=== PATIENT | male | born 1985 | race Caucasian/White ===

== ENCOUNTER 2017-09-14 20:10 | Emergency (ER) | payer OTHER ==
[~2017-09-14] VITALS: Ht 188 cm; Wt 106.0 kg
[2017-09-14 20:34] VITALS: TEMP 36.6; Ht 188 cm; Wt 106.0 kg
[2017-09-14] MEDS ORDERED: SODIUM CHLORIDE 0.9% 1000ML 1,000 ML IV STA (20:48)
[2017-09-14 21:06] VITALS: O2SAT 96
[2017-09-14 21:20] LABS: BASO % 0.3 %; BASO ABS # 0.04 K/uL (0-0.2); EOS % 1.7 %; EOS ABS # 0.22 K/uL (0-0.5); HEMATOCRIT 44.7 % (42-52); HEMOGLOBIN 15.7 g/dL (14.0-18.0); IG# 0.04 K/uL (0.00-0.02); LYMPH % 24.8 %; MEAN CELL VOLUME 84.5 fL (80-100); MEAN CORPUSCULAR HEMOGLOBIN 29.7 pg (25-34); MEAN CORPUSCULAR HGB CONC 35.1 g/dl (32-36); MONO % 6.8 %; MONO ABS # 0.88 K/uL (0.11-0.59); NEUT % 66.1 %; NEUT ABS # 8.51 K/uL (1.4-6.5); PLATELET COUNT 288 K/uL (130-400); RED CELL DISTRIBUTION WIDTH CV 13.1 % (11.5-14.5); RED CELL DISTRIBUTION WIDTH SD 40.2 fL (36.4-46.3); WHITE BLOOD COUNT 12.89 K/uL (4.8-10.8)
[2017-09-14 21:37] LABS: ALBUMIN 4.1 gm/dl (3.4-5.0); ALT/SGPT 37 U/L (12-78); AST/SGOT 22 U/L (15-37); BLOOD UREA NITROGEN 14 mg/dl (7-18); CALCIUM 9.1 mg/dl (8.5-10.1); CARBON DIOXIDE 26 mmol/L (21-32); CREATININE 1.27 mg/dl (0.60-1.40); GLUCOSE 109 mg/dl (70-99); LIPASE 265 U/L (73-393); POTASSIUM 3.6 mmol/L (3.5-5.1); SODIUM 139 mmol/L (136-145)
[2017-09-14 21:38] LABS: PTT PATIENT 26.7 SECONDS (21.0-31.0)
--- NOTE | 2017-09-14 21:38 | DIAGNOSTIC IMAGING REPORT ---
CHEST ONE VIEW PORTABLE CLINICAL HISTORY: EVALUATE ALTERED MENTAL STATUS/WEAKNESS dyspnea COMPARISON STUDY: No previous studies for comparison. FINDINGS: The bones soft tissues and hemidiaphragms are normal. The cardiomediastinal silhouette is normal. The lungs are clear. The pulmonary vasculature is normal. IMPRESSION: Negative chest. The above report was generated using voice recognition software. It may contain grammatical, syntax or spelling errors. Electronically signed by: David Trinh M.D. 09/14/2017 9:37 PM Dictated Date/Time: 09/14/2017 9:36 PM
[2017-09-14 21:48] LABS: ALKALINE PHOSPHATASE 82 U/L (45-117); TOTAL PROTEIN 8.4 gm/dl (6.4-8.2)
--- NOTE | 2017-09-14 22:10 | DIAGNOSTIC IMAGING REPORT ---
CERVICAL SPINE W/O CT DOSE: 1123.29 mGy.cm HISTORY: Altered mental status. Pain. neck pain TECHNIQUE: Multiaxial CT images of the cervical spine were performed and reformatted in the sagittal and coronal plane without the use of contrast. A dose lowering technique was utilized adhering to the principles of ALARA. COMPARISON: None. FINDINGS: No fractures. No subluxation. Prevertebral soft tissues and the C1-C2 interval are intact. No pneumothorax. IMPRESSION: No fractures within the cervical spine. Normal study The above report was generated using voice recognition software. It may contain grammatical, syntax or spelling errors. Electronically signed by: David Trinh M.D. 09/14/2017 10:08 PM Dictated Date/Time: 09/14/2017 10:06 PM
--- NOTE | 2017-09-14 22:11 | DIAGNOSTIC IMAGING REPORT ---
HEAD WITHOUT CONTRAST (CT) CT DOSE: HISTORY: EVALUATE ALTERED MENTAL STATUS/WEAKNESS TECHNIQUE: Multiaxial CT images of the head were performed without the use of intravenous contrast. A dose lowering technique was utilized adhering to the principles of ALARA. Comparison: None. Findings: The paranasal sinuses and mastoid air cells are clear. The calvarium and skull base are intact. The ventricles and sulci are within normal limits. There is no mass, hematoma, midline shift, or acute infarct. Impression: No acute intracranial abnormality. The above report was generated using voice recognition software. It may contain grammatical, syntax or spelling errors. Electronically signed by: David Trinh M.D. 09/14/2017 10:09 PM Dictated Date/Time: 09/14/2017 10:08 PM
[2017-09-14 23:01] VITALS: BP 132/90; PULSE 63; O2SAT 99
--- NOTE | 2017-09-15 02:04 | EMERGENCY ROOM VISIT NOTE ---
History Report prepared by Eric: Srinivas Davison Under the Supervision of: Dr. Roderick Hines D.O. First contact with patient: 20:36 Chief Complaint: COUGH Stated Complaint: PASSED OUT AT WORK History of Present Illness The patient is a 31 year old male who presents to the Emergency Room with complaints of a resolved syncopal episode that occurred this morning. He reports his symptoms started two weeks ago with a sorethroat. The patient notes he then developed a chest congestion, cough, and runny nose. He states he thought it was strep throat, so he took some of the left over medication from when his had strep throat. The patient reports his soreness went away this Thursday. He notes he continued to have the chest congestion/tightness, coughing , and runny nose. The patient states nothing fixes his chest congestion. He reports he had jaw pain when his throat was sore, but this resolved with his sorethroat. The patient notes he tried to use the restroom earlier today, and he developed lower abdominal discomfort. He states his vision started to blur, so he leaned onto the side of the truck. The patient reports he lost consciousness, hit his head, and woke up on the ground. He notes he does not know how long he was unconscious. The patient states he did not remember where he was when he woke up, all he could see was the tire of his truck, and he developed neck pain. He denies drug use, alcohol use, recent travel, recent trauma, biting his tongue, a history of smoking, heart disease, and a family history of at a young age. 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 The patient notes he was evaluated at [facility] before coming to the ED. Source of History: patient Onset: this morning Quality: other (syncope) Timing: resolved Associated Symptoms: + cough, + abdominal pain (lower) Note: Associated symptoms: chest congestion/tightness, runny nose, resolved jaw pain, blurry vision, hitting head, confused when waking up Denies: biting tongue, recent trauma, recent travel Review of Systems See HPI for pertinent positives & negatives. A total of 10 systems reviewed and were otherwise negative. Past Medical & Surgical Medical Problems: (1) No Known Active Medical Problems Family History Patient reports no known family medical history. Social History Smoking Status: Never Smoker Marital Status: Housing Status: lives with significant other Occupation Status: employed Current/Historical Medications No Active Prescriptions or Reported Meds Allergies Coded Allergies: No Known Allergies (Unverified , 09/14/17) Physical Exam Vital Signs Date Time Temp Pulse Resp B/P (MAP) Pulse Ox O2 Delivery O2 Flow Rate FiO2 09/14/17 23:01 63 20 132/90 99 Room Air 09/14/17 21:28 75 09/14/17 21:06 96 Room Air 09/14/17 21:04 84 20 142/93 95 Room Air 134/101 140/99 09/14/17 20:34 36.6 86 20 149/85 99 Room Air Physical Exam GENERAL: alert, well appearing, well nourished, no distress, non-toxic HEAD: normal cephalic, small contusion to the left occiput. EYE EXAM: normal conjunctiva, PERRL and EOM's intact OROPHARYNX: no exudate, no erythema, lips, buccal mucosa, and tongue normal and mucous membranes are moist EARS: TMs clear b/l NECK: supple, no nuchal rigidity, no adenopathy, non-tender CHEST: stable to compression anteriorly and posteriorly LUNGS: clear to auscultation. Normal chest wall mechanics HEART: no murmurs, S1 normal and S2 normal ABDOMEN: abdomen soft, non-tender, normo-active bowel sounds, no masses, no rebound or guarding. PELVIS: stable to compression anteriorly and posteriorly BACK: Back is symmetrical on inspection and there is no deformity, no midline tenderness, no CVA tenderness. UPPER EXTREMITIES: full active and passive range of motion of all joints without tenderness to palpation LOWER EXTREMITIES: full active and passive range of motion of all joints without tenderness to palpation NEURO EXAM: Normal sensorium, cranial nerves II-XII grossly intact, normal speech, no weakness of arms, no weakness of legs. No drift. Finger to nose intact. GCS: 15. Medical Decision & Procedures ER Provider Diagnostic Interpretation: Radiology results as stated below per my review and the radiologist's interpretation: HEAD WITHOUT CONTRAST (CT) CT DOSE: HISTORY: EVALUATE ALTERED MENTAL STATUS/WEAKNESS TECHNIQUE: Multiaxial CT images of the head were performed without the use of intravenous contrast. A dose lowering technique was utilized adhering to the principles of ALARA. Comparison: None. Findings: The paranasal sinuses and mastoid air cells are clear. The calvarium and skull base are intact. The ventricles and sulci are within normal limits. There is no mass, hematoma, midline shift, or acute infarct. Impression: No acute intracranial abnormality. The above report was generated using voice recognition software. It may contain grammatical, syntax or spelling errors. Electronically signed by: David Trinh M.D. 09/14/2017 10:09 PM Dictated Date/Time: 09/14/2017 10:08 PM CHEST ONE VIEW PORTABLE CLINICAL HISTORY: EVALUATE ALTERED MENTAL STATUS/WEAKNESS dyspnea COMPARISON STUDY: No previous studies for comparison. FINDINGS: The bones soft tissues and hemidiaphragms are normal. The cardiomediastinal silhouette is normal. The lungs are clear. The pulmonary vasculature is normal. IMPRESSION: Negative chest. The above report was generated using voice recognition software. It may contain grammatical, syntax or spelling errors. Electronically signed by: David Trinh M.D. 09/14/2017 9:37 PM Dictated Date/Time: 09/14/2017 9:36 PM CERVICAL SPINE W/O CT DOSE: 1123.29 mGy.cm HISTORY: Altered mental status. Pain. neck pain TECHNIQUE: Multiaxial CT images of the cervical spine were performed and reformatted in the sagittal and coronal plane without the use of contrast. A dose lowering technique was utilized adhering to the principles of ALARA. COMPARISON: None. FINDINGS: No fractures. No subluxation. Prevertebral soft tissues and the C1-C2 interval are intact. No pneumothorax. IMPRESSION: No fractures within the cervical spine. Normal study The above report was generated using voice recognition software. It may contain grammatical, syntax or spelling errors. Electronically signed by: David Trinh M.D. 09/14/2017 10:08 PM Dictated Date/Time: 09/14/2017 10:06 PM Laboratory Results 09/14/17 21:10 Red Blood Count 5.29, Mean Corpuscular Volume 84.5, Mean Corpuscular Hemoglobin 29.7, Mean Corpuscular Hemoglobin Concent 35.1, Mean Platelet Volume 10.0, Neutrophils (%) (Auto) 66.1, Lymphocytes (%) (Auto) 24.8, Monocytes (%) (Auto) 6.8, Eosinophils (%) (Auto) 1.7, Basophils (%) (Auto) 0.3, Neutrophils # (Auto) 8.51, Lymphocytes # (Auto) 3.20, Monocytes # (Auto) 0.88, Eosinophils # (Auto) 0.22, Basophils # (Auto) 0.04 09/14/17 21:10 Test 09/14/17 20:59 09/14/17 21:10 09/14/17 22:00 Bedside Glucose 111 mg/dl (70-99) White Blood Count 12.89 K/uL (4.8-10.8) Red Blood Count 5.29 M/uL (4.7-6.1) Hemoglobin 15.7 g/dL (14.0-18.0) Hematocrit 44.7 % (42-52) Mean Corpuscular Volume 84.5 fL (80-100) Mean Corpuscular Hemoglobin 29.7 pg (25-34) Mean Corpuscular Hemoglobin Concent 35.1 g/dl (32-36) Platelet Count 288 K/uL (130-400) Mean Platelet Volume 10.0 fL (7.4-10.4) Neutrophils (%) (Auto) 66.1 % Lymphocytes (%) (Auto) 24.8 % Monocytes (%) (Auto) 6.8 % Eosinophils (%) (Auto) 1.7 % Basophils (%) (Auto) 0.3 % Neutrophils # (Auto) 8.51 K/uL (1.4-6.5) Lymphocytes # (Auto) 3.20 K/uL (1.2-3.4) Monocytes # (Auto) 0.88 K/uL (0.11-0.59) Eosinophils # (Auto) 0.22 K/uL (0-0.5) Basophils # (Auto) 0.04 K/uL (0-0.2) RDW Standard Deviation 40.2 fL (36.4-46.3) RDW Coefficient of Variation 13.1 % (11.5-14.5) Immature Granulocyte % (Auto) 0.3 % Immature Granulocyte # (Auto) 0.04 K/uL (0.00-0.02) Activated Partial Thromboplast Time 26.7 SECONDS (21.0-31.0) Partial Thromboplastin Ratio 1.0 D-Dimer 220 ug/L FEU (0-500) Anion Gap 9.0 mmol/L (3-11) Est Creatinine Clear Calc Drug Dose 107.4 ml/min Estimated GFR () 85.5 Estimated GFR (Non- 73.7 BUN/Creatinine Ratio 11.3 (10-20) Calcium Level 9.1 mg/dl (8.5-10.1) Magnesium Level 2.2 mg/dl (1.8-2.4) Total Bilirubin 0.3 mg/dl (0.2-1) Direct Bilirubin < 0.1 mg/dl (0-0.2) Aspartate Amino Transf (AST/SGOT) 22 U/L (15-37) Alanine Aminotransferase (ALT/SGPT) 37 U/L (12-78) Alkaline Phosphatase 82 U/L (45-117) Troponin I < 0.015 ng/ml (0-0.045) Total Protein 8.4 gm/dl (6.4-8.2) Albumin 4.1 gm/dl (3.4-5.0) Lipase 265 U/L (73-393) Thyroid Stimulating Hormone (TSH) 1.400 uIu/ml (0.300-4.500) Urine Color YELLOW Urine Appearance CLEAR (CLEAR) Urine pH 5.5 (4.5-7.5) Urine Specific [place] 1.022 (1.000-1.030) Urine Protein NEG (NEG) Urine Glucose (UA) NEG (NEG) Urine Ketones NEG (NEG) Urine Occult Blood NEG (NEG) Urine Nitrite NEG (NEG) Urine Bilirubin NEG (NEG) Urine Urobilinogen NEG (NEG) Urine Leukocyte Esterase NEG (NEG) Laboratory results per my review. Medications Administered Medications (Trade) Dose Ordered Sig/Dewayne Route Start Time Stop Time Status Last Admin Dose Admin Sodium Chloride 1,000 ml @ 999 mls/hr Q1H1M STAT IV 09/14/17 20:48 09/14/17 21:48 DC 09/14/17 21:09 999 MLS/HR ECG Per My Interpretation Indication: syncope Rate (beats per minute): 76 Rhythm: sinus rhythm Findings: left axis deviation, other (No PVCs.) ED Course ED COURSE: Vital signs were reviewed and showed normal vitals. The patients medical record was reviewed The above diagnostic studies were performed and reviewed. ED treatments and interventions as stated above. 2041: The patient was evaluated in room C08. A complete history and physical examination was performed. 2047: Ordered Sodium Chloride 1000 ml @ 999 mls/hr IV 2158: I reevaluated the patient. He is feeling better and I updated him of his current results. 2328: Upon reevaluation, the patient is resting and feeling better.I discussed my findings with the patient and he understands and agrees with the treatment plan. Based on the patients age, coexisting illnesses, exam and lab findings the decision to treat as an outpatient was made. The patient remained stable while under my care. The patient appeared well at the time of discharge. Medical Decision Differential diagnosis includes etiologies such as vasovagal event, infection, hypoglycemia, electrolyte abnormalities, cardiac sources, intracerebral event, toxicologic, neurologic, as well as others were entertained. Patient is a 31-year-old male that presents to ER for syncopal episode which occurred earlier today. He notes that he got sharp stabbing abdominal pains and passed out. After he woke up he has mild left sided head contusion. Patient is completely neurologically intact. CBC along with BMP, LFTs, bilirubin and troponin along with TSH and lipase were unremarkable. D-dimer was negative. UA was negative. EKG and chest x-ray were unremarkable. CT head and cervical spine were negative. Patient was updated in regards to his findings. He had no new complaints. He does have viral URI symptoms. I do favor the syncope was secondary to a vasovagal event. He has no cardiac risk factors. Patient denies diabetes, hypertension, hyperlipidemia, CAD, history of sudden at a young age, and smoking. Patient was updated at bedside and discharged follow-up with PCP as an outpatient with vasovagal syncope and URI. Discussed with Pt concerning signs and symptoms to watch out for. Pt was instructed to follow up with their PCP and discussed with the patient their option to return to the ED at anytime for persistent or worsening symptoms. The appropriate anticipatory guidance and out-patient management, including indications for return to the emergency department, were explained at length to the patient and understood. Head Trauma GCS Score: 15 Medication Reconcilliation Current Medication List: was personally reviewed by me Blood Pressure Screening Patient's blood pressure: Normal blood pressure Blood pressure disposition: Did not require urgent referral Impression Primary Impression: Syncope Additional Impression: Upper respiratory infection Scribe Attestation The scribe's documentation has been prepared under my direction and personally reviewed by me in its entirety. I confirm that the note above accurately reflects all work, treatment, procedures, and medical decision making performed by me. Departure Information Dispostion Home / Self-Care Prescriptions No Active Prescriptions or Reported Meds Referrals Ricky Tang M.D. Forms HOME CARE DOCUMENTATION FORM, IMPORTANT VISIT INFORMATION Patient Instructions ED Syncope Vasovagal, ED URI Viral, My [facility] [address], Syncope Causes Additional Instructions Please follow up with your primary care doctor with in the next 24 hours. Any worsening of your symptoms, please return to the ED immediately. This includes any fevers greater than 100.4, worsening pain, chest pain, shortness breath, persistent nausea, vomiting, unable to eat or drink, recurrent syncope, or any other concerning signs or symptoms from your standpoint. Problem Qualifiers Primary Impression: Syncope Syncope type: unspecified Qualified Codes: R55 - Syncope and collapse Additional Impression: Upper respiratory infection URI type: unspecified URI Qualified Codes: J06.9 - Acute upper respiratory infection, unspecified
== END 2017-09-14 23:32 | disposition home or self-care (01) ==
LOC: C.EDB 20:12 → MERGE 20:12 → C.EDC 23:32
DX: R55 Syncope and collapse (principal); J06.9 Acute upper respiratory infection, unspecified